=== PATIENT | female | born 1945 | race Caucasian/White ===

== ENCOUNTER 2021-11-29 19:07 | Emergency (ER) | payer MEDICARE, OTHER, SELFPAY ==
[2021-11-29] VITALS (12 sets, daily range): BP systolic 175–187; BP diastolic 84–105; PULSE 79–91; RESP 22; O2SAT 92–99; BMI 30.1
--- NOTE | 2021-11-29 19:15 | DI.RAD.S_ITS ---
PROCEDURE: XR SHOULDER LT MIN 2V INDICATIONS: fall with obvious deformity of humerus TECHNIQUE: 3 views of the shoulder were acquired. COMPARISON: None. FINDINGS: Bones: Question possible posterior shoulder dislocation. Unable to obtain a adequate scapular Y-view secondary to patient injury in symptomatology. No suspicious bony lesions. Visualized ribs appear intact. Soft tissues: No suspicious soft tissue calcifications. IMPRESSION: Question posterior shoulder dislocation. Consider CT for further evaluation. Dictated by: Eliseo Farah M.D. on 11/29/2021 at 20:20 Approved by: Eliseo Farah M.D. on 11/29/2021 at 20:21
--- NOTE | 2021-11-29 19:15 | DI.RAD.S_ITS ---
PROCEDURE: XR HUMERUS LT 2V INDICATIONS: fall with obvious deformity TECHNIQUE: 2 views of the humerus were acquired. COMPARISON: None. FINDINGS: Bones: Comminuted fracture of the distal humeral diaphysis. The remaining visualized osseous structures appear maintained. Soft tissues: No suspicious soft tissue calcifications. Edema about the fracture site. IMPRESSION: Comminuted fracture of the distal humeral diaphysis. Dictated by: Arjun Mittal M.D. on 11/29/2021 at 20:03 Approved by: Arjun Mittal M.D. on 11/29/2021 at 20:04
--- NOTE | 2021-11-29 19:15 | DI.RAD.S_ITS ---
PROCEDURE: XR ELBOW LT MIN 3V INDICATIONS: fall with obvious deformity TECHNIQUE: 3 views of the elbow were acquired. COMPARISON: None. FINDINGS: Bones: Comminuted fracture of the distal humeral diaphysis. The remaining visualized osseous structures appear maintained. Soft tissues: No elbow joint effusion. Edema about the fracture site. IMPRESSION: Comminuted fracture of the distal humeral diaphysis. Dictated by: Arjun Mittal M.D. on 11/29/2021 at 20:04 Approved by: Arjun Mittal M.D. on 11/29/2021 at 20:05
--- NOTE | 2021-11-29 19:15 | DI.CT.S_ITS ---
PROCEDURE: CT FACIAL BONES WO CON INDICATIONS: fall with facial injury TECHNIQUE: Noncontrast 2.5 mm thick axial images acquired from the mandible through the frontal sinuses, with coronal and sagittal reformatting. For radiation dose reduction, the following was used: automated exposure control, adjustment of mA and/or kV according to patient size. COMPARISON: None. FINDINGS: Image quality: Excellent. Bones and teeth: Orbital castillo are intact. Sinus castillo show no fracture or deformity. Nasal bones and septum are intact. Visualized portions of the mandible demonstrate no fractures or subluxation. Zygomatic arches are intact. Pterygoid plates are intact. Visualized portions of the skull base and auditory canals are intact. Sinuses: No air-fluid levels in the paranasal sinuses. Patchy bilateral ethmoid disease. Left maxillary sinus mucous retention cysts. Mild bilateral maxillary sinus mucosal thickening. Mastoid air cells are aerated. Soft tissues: No edema, masses, or fluid collections. No enlarged lymph nodes. No soft tissue lacerations or debris. Vascular: Visualized vascular structures appear normal in the absence of contrast. Bony vascular foramina and canals are intact. IMPRESSION: 1. No evidence of displaced facial bone fracture or mandibular fracture. 2. Chronic sinus disease. Dictated by: Eliseo Farah M.D. on 11/29/2021 at 20:55 Approved by: Eliseo Farah M.D. on 11/29/2021 at 20:56
--- NOTE | 2021-11-29 19:16 | DI.CT.S_ITS ---
PROCEDURE: CT CERVICAL SPINE WO CON INDICATIONS: Trauma TECHNIQUE: Noncontrast 3 mm thick sections acquired from the skull base to the T4 level. Sagittal and coronal reformats were then constructed. For radiation dose reduction, the following was used: automated exposure control, adjustment of mA and/or kV according to patient size. COMPARISON: None. FINDINGS: Image quality: Excellent. Bones: No fractures or dislocations. Visualized superior ribs are intact. There is moderate cervical spondylitic change. There is trace anterolisthesis of C4 on C5 and question of anterior disc space widening with an anterior disc bulge. Findings are present at a level of bilateral facet arthropathy. Trace anterolisthesis as well as anterior disc height widening are most likely chronic findings. However, consider flexion and extension cervical spine plain films. At C5-C6, there is disc height loss and uncovertebral joint hypertrophy. There is right foraminal narrowing at C4-C5 and C5-C6. There is left bony foraminal narrowing at C5-C6. There is multilevel facet arthropathy Soft tissues: Prevertebral soft tissues are normal in thickness. No paravertebral hematomas. No apical pneumothoraces. Centrilobular emphysema. IMPRESSION: 1. No evidence acute cervical fracture or dislocation. 2. Moderate cervical spondylitic change. 3. Trace anterolisthesis of C4 on C5 and anterior disc space widening within anterior disc bulge may all be chronic findings in this patient with bilateral facet arthropathy at this level. However, flexion and extension cervical spine plain films may potentially be helpful to rule out ligamentous laxity. . Dictated by: Eliseo Farah M.D. on 11/29/2021 at 20:27 Approved by: Eliseo Farah M.D. on 11/29/2021 at 20:32
--- NOTE | 2021-11-29 19:16 | DI.CT.S_ITS ---
PROCEDURE: CT HEAD/BRAIN WO CON INDICATIONS: Trauma TECHNIQUE: Noncontrast 4.5 mm thick angled axial sections acquired from the foramen magnum to the vertex, with coronal and sagittal reformats. For radiation dose reduction, the following was used: automated exposure control, adjustment of mA and/or kV according to patient size. COMPARISON: None. FINDINGS: Image quality: There is some mild patient motion artifact. CSF spaces: Basal cisterns are patent. No extra-axial fluid collections. The ventricles are symmetric in size and shape. Brain: No intracranial bleeds or masses. There is cerebral volume loss for age, with resultant ventricular and sulcal prominence. There are periventricular and deep white matter chronic small vessel ischemic changes. There is intracranial internal carotid artery atherosclerosis. Skull and face: Calvarium and visualized facial bones appear intact, without suspicious lesions. Sinuses: Patchy chronic ethmoid opacification consistent with chronic sinus disease. Left maxillary sinus mucous retention cysts. Right maxillary sinus mucosal thickening. IMPRESSION: 1. Chronic sinus disease. 2. Age-related volume loss and small vessel ischemic change. 3. No evidence acute stroke, hemorrhage, or mass. No evidence of significant intracranial abnormality secondary to acute trauma. Dictated by: Eliseo Farah M.D. on 11/29/2021 at 20:32 Approved by: Eliseo Farah M.D. on 11/29/2021 at 20:34
--- NOTE | 2021-11-29 19:18 | ED_ITS ---
HPI - Trauma General Chief Complaint: Fall Stated Complaint: trip and fall/ broken arm Time Seen by Provider: 11/29/21 19:15 History of Present Illness HPI narrative: 76F nonsmoker without significant medical history presents by EMS for evaluation of a ground level fall resulting in obvious injury. She has been in her normal state of health and denies any prodromal symptoms such as dizziness, weakness or lightheadedness. She was exiting a restaurant tripped over something on the gr ound and fell striking her face and severely injuring her left upper arm. She denies any loss of consciousness and has full recall. She denies any nausea, vomiting or diarrhea. She does not take blood thinners. She denies any blurred vision or difficulty breathing. She has been splinted has obvious deformity of left upper extremity without report of numbness, tingling or weakness. She denies any chest pain or shortness of breath. She is activated as a modified trauma given her age in suspicion of injury. Related Data Allergies Allergy/AdvReac Type Severity Reaction Status Date / Time No Known Drug Allergies Allergy Verified 11/29/21 19:17 Review of Systems Review of Systems Narrative: GENERAL: Denies chills, fatigue, malaise, fever, sweats. HEENT: Denies sinus pain, ear pain, sore throat, difficulty swallowing, dizzines s. RESPIRATORY: Denies dyspnea, cough, wheezing, hemoptysis, sputum. CARDIOVASCULAR: Denies chest pain, palpitations, orthopnea, edema, GASTROINTESTINAL: Denies nausea, vomiting, abdominal pain, diarrhea, constipation, melena. : Denies dysuria, frequency, incontinence, hematuria, urinary retention. MUSCULOSKELETAL: See HPI SKIN: Denies rash, skin lesions, or other NEUROLOGIC: See HPI PSYCHIATRIC: No concerning psychosocial issues. 12 point review of systems is negative except for those stated above Patient History Social History Smoking Status: Never smoker Exam Narrative Exam Narrative: GENERAL: [76] year old patient appears stated age. Well-developed patient, in mild distress. GCS 15 HEAD: Multiple abrasions to face overlying nose and forehead. No deep lacerations, evidence of depressed skull fracture EYES: Pupils equal round and reactive. No hyphema. Extraocular motions intact. No scleral icterus. No injection or drainage. ENT: Nose without bleeding, purulent drainage. No nasal septal hematoma. Throat without erythema, tonsillar hypertrophy or exudate. Airway patent. NECK: Trachea midline. Non tender CARDIOVASCULAR: Regular rate and rhythm without murmurs, gallops, or rubs. RESPIRATORY: Clear to auscultation. Breath sounds equal bilaterally. No wheezes, rales, or rhonchi. GASTROINTESTINAL: Abdomen soft, non-tender, nondistended. EXTREMITIES: No pain left shoulder, elbow, wrist. Severe pain w/deformity of L humerus. Episodic, positional tingling of left hand. Radial pulse palpable BACK: Nontender without deformity or crepitance. No flank tenderness. NEURO: AOx3.tingling in left hand, particularly on dorsum. Weak wrist extension SKIN: No rash or erythema of visible areas Initial Vital Signs Initial Vital Signs: Vital Signs Respiratory Rate 11/29/21 19:15 Blood Pressure 178/98 H 11/29/21 19:15 Procedures Orthopedic Splinting/Casting Injury #1: Side: left Upper Extremity Injury Location: upper arm Upper Extremity Immobilizer: sling/shoulder immobilizer and sugar tong splint (coaptic splint) Post splinting neuro exam: other (more persistent wrist drop, splint removed, patient repositioned) Post splinting vascular exam: no change Course Orders Ordered: ED Orders 11/29/21 19:15 CT facial bones wo con Stat XR elbow LT min 3V Stat XR humerus LT 2V Stat XR shoulder LT min 2V Stat 11/29/21 19:16 CT cervical spine wo con Stat CT head/brain wo con Stat EKG-12 Lead Stat 11/29/21 19:45 Complete Blood Count AUTO DIFF Stat Comprehensive Metabolic Panel Stat Ethanol (ETOH) Stat Lipase Stat Type and Screen Stat 11/29/21 21:42 COVID19 -Nasal swab/Pre-Proc Stat Discontinued Medications Diphtheria/Tetanus/Acell Pertussis (Tet,Diph,Pertuss(Acell),Vac/Pf 0.5 Ml Syr glenna) 0.5 ml IM .ONCE ONE Stop: 11/29/21 19:16 Last Admin: 11/29/21 19:44 Dose: 0.5 ml Documented by: JOSE Fentanyl (Fentanyl 100 Mcg/2 Ml Inj) 50 mcg IV NOW ONE Stop: 11/29/21 19:16 Last Admin: 11/29/21 19:45 Dose: 50 mcg Documented by: JOSE Fentanyl (Fentanyl 100 Mcg/2 Ml Inj) 50 mcg IV NOW ONE Stop: 11/29/21 21:07 Last Admin: 11/29/21 21:09 Dose: 50 mcg Documented by: JOSE Ondansetron HCl (Ondansetron 4 Mg/2 Ml Inj) 4 mg IV NOW ONE Stop: 11/29/21 19:16 Last Admin: 11/29/21 19:45 Dose: 4 mg Documented by: JOSE Ondansetron HCl (Ondansetron 4 Mg Odt Prepack) 1 bottle MISC SEEINSTR ONE Stop: 11/29/21 20:56 Last Admin: 11/30/21 00:32 Dose: Not Given Documented by: JOSE Oxycodone/Acetaminophen (Oxycodone/Apap 5/325 Prepack) 1 bottle MISC SEEINSTR ONE Stop: 11/29/21 20:56 Last Admin: 11/30/21 00:32 Dose: Not Given Documented by: JOSE Reevaluation(s) Reevaluation #1: patient has worsening and more persistent weakness in distribution of radial nerve post splinting. Compartments soft. Splint taken down, arm respositioned, she is weak with wrist extension despite repositioning at this time. Consultations Consultation #1: call to Dr. Dougherty (ortho), he has reviewed imaging. Agrees that without pain in shoulder, it is not likely dislocated. Suggests coaptation splint, sling unless radial nerve involvement in which case it would become outside our ability to treat local Consultation #2: upon new findings, call to [facility] [place], images pushed. despite multiple efforts the images have not been viewed by receiving ortho, but recommendation remains the same. Please send to [facility] [place]. ALS transport activated due to need for ongoing neuro exams and likely pain control Vital Signs Vital signs: Vital Signs - 8 hr 11/29/21 19:15 11/29/21 19:26 11/29/21 19:30 Pulse Rate 85 79 Respiratory Rate 22 Blood Pressure 178/98 H 182/105 H Pulse Oximetry 98 97 11/29/21 20:17 11/29/21 20:30 11/29/21 20:42 Pulse Rate 84 83 85 Respiratory Rate Blood Pressure 175/86 H Pulse Oximetry 97 96 95 11/29/21 21:00 11/29/21 21:30 11/29/21 22:14 Pulse Rate 86 86 81 Respiratory Rate Blood Pressure 187/84 H Pulse Oximetry 96 97 99 11/29/21 22:30 11/29/21 23:00 11/29/21 23:30 Pulse Rate 86 91 H 88 Respiratory Rate Blood Pressure Pulse Oximetry 93 92 92 11/30/21 00:22 11/30/21 00:23 11/30/21 00:30 Pulse Rate 78 78 79 Respiratory Rate Blood Pressure 170/91 H Pulse Oximetry 95 97 95 MDM - Trauma Lab Data Result diagrams: 11/29/21 19:45 11/29/21 19:45 Labs: Lab Results 11/29/21 11/29/21 11/29/21 Range/Units 19:45 19:45 19:45 WBC 10.3 (4.5-11.0) X10^3/uL RBC 4.19 (4.0-5.2) X10^6/uL Hgb 14.6 (12.0-16.0) g/dL Hct 43.1 (36-46) % MCV 103.0 H (80-100) fL MCH 34.9 H (26-34) PG MCHC 33.9 (30-36) % RDW 13.7 (11.6-14.8) % Plt Count 222 (150-400) X10^3/uL Neut % (Auto) 75.0 (50-75) % Lymph % (Auto) 14.2 L (25-40) % Liberty % (Auto) 8.0 (3-14) % Eos % (Auto) 2.4 (2-4) % Baso % (Auto) 0.4 (0-2) % Neut # (Auto) 7700 H (8777-3686) /uL Lymph # (Auto) 1500 (1512-2848) /uL Liberty # (Auto) 800 (0-900) /uL Eos # (Auto) 200 (0-450) /uL Baso # (Auto) 0 (0-100) /uL Sodium 136 L (137-145) mmol/L Potassium 3.7 (3.4-5.1) mmol/L Chloride 104 (98-107) mmol/L Carbon Dioxide 21 L (22-32) mmol/L BUN 16 (7-17) mg/dL Creatinine 0.61 (0.52-1.04) mg/dL Estimated GFR > 60.0 (>60) mL/min BUN/Creatinine Ratio 26.2 H (6-22) Glucose 135 H (80-110) mg/dL Calcium 9.7 (8.4-10.2) mg/dL Total Bilirubin 0.4 (0.2-1.3) mg/dL AST 35 (14-36) IU/L ALT 21 (<35) IU/L Alkaline Phosphatase 55 (38-126) U/L Total Protein 8.6 H (6.3-8.2) g/dL Albumin 4.8 (3.5-5.0) g/dL Globulin 3.8 (1.7-4.1) g/dL Albumin/Globulin Ratio 1.3 (1.0-2.8) Lipase 125 (23-300) U/L Ethyl Alcohol < 10 ( - 10) mg/dL SARS-CoV-2 (PCR) (Negative) Blood Type A Positive Antibody Screen Negative 11/29/21 Range/Units 21:42 WBC (4.5-11.0) X10^3/uL RBC (4.0-5.2) X10^6/uL Hgb (12.0-16.0) g/dL Hct (36-46) % MCV (80-100) fL MCH (26-34) PG MCHC (30-36) % RDW (11.6-14.8) % Plt Count (150-400) X10^3/uL Neut % (Auto) (50-75) % Lymph % (Auto) (25-40) % Liberty % (Auto) (3-14) % Eos % (Auto) (2-4) % Baso % (Auto) (0-2) % Neut # (Auto) (7638-7580) /uL Lymph # (Auto) (7813-0437) /uL Liberty # (Auto) (0-900) /uL Eos # (Auto) (0-450) /uL Baso # (Auto) (0-100) /uL Sodium (137-145) mmol/L Potassium (3.4-5.1) mmol/L Chloride (98-107) mmol/L Carbon Dioxide (22-32) mmol/L BUN (7-17) mg/dL Creatinine (0.52-1.04) mg/dL Estimated GFR (>60) mL/min BUN/Creatinine Ratio (6-22) Glucose (80-110) mg/dL Calcium (8.4-10.2) mg/dL Total Bilirubin (0.2-1.3) mg/dL AST (14-36) IU/L ALT (<35) IU/L Alkaline Phosphatase (38-126) U/L Total Protein (6.3-8.2) g/dL Albumin (3.5-5.0) g/dL Globulin (1.7-4.1) g/dL Albumin/Globulin Ratio (1.0-2.8) Lipase (23-300) U/L Ethyl Alcohol ( - 10) mg/dL SARS-CoV-2 (PCR) Negative (Negative) Blood Type Antibody Screen Imaging Data CT scan - head: Radiologist's Impression: [address] [address] [address] Scan Report Signed Patient: Yasmin Franco MR#: [id number] : 1945 Acct:[id number] Age/Sex: 76 / F Date of Service: 11/29/21 Loc: ED Accession Number: [id number] ?? Procedure: CT head/brain wo con Ordering Provider: Josh Hayward D.O. PROCEDURE:? CT HEAD/BRAIN WO CON ? INDICATIONS:? Trauma ? TECHNIQUE:? Noncontrast 4.5 mm thick angled axial sections acquired from the foramen magnum to the vertex, with coronal and sagittal reformats.? For radiation dose reduction, the following was used:? automated exposure control, adjustment of mA and/or kV according to patient size.? ? COMPARISON:? None. ? FINDINGS:? Image quality:? There is some mild patient motion artifact.? ? CSF spaces:? Basal cisterns are patent.? No extra-axial fluid collections.? The ventricles are symmetric in size and shape.? ? Brain:? No intracranial bleeds or masses.? There is cerebral volume loss for age, with resultant ventricular and sulcal prominence.? There are periventricular and deep white matter chronic small vessel ischemic changes.? There is intracranial internal carotid artery atherosclerosis.? ? Skull and face:? Calvarium and visualized facial bones appear intact, without suspicious lesions.? ? Sinuses:? Patchy chronic ethmoid opacification consistent with chronic sinus disease.? Left maxillary sinus mucous retention cysts.? Right maxillary sinus mucosal thickening. ? IMPRESSION:? ? 1. Chronic sinus disease. ? 2. Age-related volume loss and small vessel ischemic change. ? 3. No evidence acute stroke, hemorrhage, or mass.? No evidence of significant intracranial abnormality secondary to acute trauma.? ? Dictated by: Eliseo Farah M.D. on 11/29/2021 at 20:32 ? ? Approved by: Eliseo Farah M.D. on 11/29/2021 at 20:34 ? CT - cervical spine: Radiologist's Impression: Close Head CT (Signed) Eliseo Farah - 11/29/[address] (Signed) Eliseo Farah - 11/29/21 Shoulder X-Ray (Signed) Eliseo Farah - 11/29/21 Humerus X-Ray (Signed) Arjun Mittal - 11/29/[address] (Signed) Eliseo Farah - 11/29/21 Elbow X-Ray (Signed) Arjun Mittal - 11/29/21 Launch?[place] [address] CT Scan Report Signed Patient: Yasmin Franco MR#: [id number] : 1945 Acct:[id number] Age/Sex: 76 / F Date of Service: 11/29/21 Loc: ED Accession Number: [id number] ?? Procedure: CT cervical spine wo con Ordering Provider: Josh Hayward D.O. PROCEDURE:? CT CERVICAL SPINE WO CON ? INDICATIONS:? Trauma ? TECHNIQUE:? Noncontrast 3 mm thick sections acquired from the skull base to the T4 level.? Sagittal and coronal reformats were then constructed.? For radiation dose reduction, the following was used:? automated exposure control, adjustment of mA and/or kV according to patient size.? ? COMPARISON:? None. ? FINDINGS:? Image quality:? Excellent.? ? Bones:? No fractures or dislocations.? Visualized superior ribs are intact.? There is moderate cervical spondylitic change.? There is trace anterolisthesis of C4 on C5 and question of anterior disc space widening with an anterior disc bulge.? Findings are present at a level of bilateral facet arthropathy.? Trace anterolisthesis as well as anterior disc height widening are most likely chronic findings.? However, consider flexion and extension cervical spine plain films.? At C5-C6, there is disc height loss and uncovertebral joint hypertrophy.? There is right foraminal narrowing at C4- C5 and C5-C6.? There is left bony foraminal narrowing at C5-C6.? There is multilevel facet arthropathy ? Soft tissues:? Prevertebral soft tissues are normal in thickness.? No paravertebral hematomas.? No apical pneumothoraces.? Centrilobular emphysema. ? ? IMPRESSION:? ? 1. No evidence acute cervical fracture or dislocation. ? 2. Moderate cervical spondylitic change.? ? 3. Trace anterolisthesis of C4 on C5 and anterior disc space widening within anterior disc bulge may all be chronic findings in this patient with bilateral facet arthropathy at this level.? However, flexion and extension cervical spine plain films may potentially be helpful to rule out ligamentous laxity. . ? Dictated by: Eliseo Farah M.D. on 11/29/2021 at 20:27 ? ? Approved by: Eliseo Farah M.D. on 11/29/2021 at 20:32 ? facial bones: Radiologist's Impression: Launch?[place] [address] CT Scan Report Signed Patient: Yasmin Franco MR#: [id number] : 1945 Acct:[id number] Age/Sex: 76 / F Date of Service: 11/29/21 Loc: ED Accession Number: [id number] ?? Procedure: CT facial bones wo con Ordering Provider: Josh Hayward D.O. PROCEDURE:? CT FACIAL BONES WO CON ? INDICATIONS:? fall with facial injury ? TECHNIQUE:? Noncontrast 2.5 mm thick axial images acquired from the mandible through the frontal sinuses, with coronal and sagittal reformatting.? For radiation dose reduction, the following was used:? automated exposure control, adjustment of mA and/or kV according to patient size.? ? COMPARISON:? None. ? FINDINGS:? Image quality:? Excellent.? ? Bones and teeth:? Orbital castillo are intact.? Sinus castillo show no fracture or deformity.? Nasal bones and septum are intact.? Visualized portions of the mandible demonstrate no fractures or subluxation.? Zygomatic arches are intact.? Pterygoid plates are intact.? Visualized portions of the skull base and auditory canals are intact.? ? Sinuses:? No air-fluid levels in the paranasal sinuses.? Patchy bilateral ethmoid disease.? Left maxillary sinus mucous retention cysts.? Mild bilateral maxillary sinus mucosal thickening.? Mastoid air cells are aerated.? ? Soft tissues:? No edema, masses, or fluid collections.? No enlarged lymph nodes.? No soft tissue lacerations or debris.? ? Vascular:? Visualized vascular structures appear normal in the absence of contrast.? Bony vascular foramina and canals are intact.? ? IMPRESSION:? ? 1. No evidence of displaced facial bone fracture or mandibular fracture. ? 2. Chronic sinus disease.? ? ? Dictated by: Eliseo Farah M.D. on 11/29/2021 at 20:55 ? ? Approved by: Eliseo Farah M.D. on 11/29/2021 at 20:56 ? Shoulder Xray: Radiologist's Impression: [place] [address] XRay Report Signed Patient: Yasmin Franco MR#: [id number] : 1945 Acct:[id number] Age/Sex: 76 / F Date of Service: 11/29/21 Loc: ED Accession Number: [id number] ?? Procedure: XR shoulder LT min 2V Ordering Provider: Josh Hayward D.O. PROCEDURE:? XR SHOULDER LT MIN 2V ? INDICATIONS:? fall with obvious deformity of humerus ? TECHNIQUE:? 3 views of the shoulder were acquired.? ? COMPARISON:? None. ? FINDINGS:? ? Bones:? Question possible posterior shoulder dislocation.? Unable to obtain a adequate scapular Y-view secondary to patient injury in symptomatology.? No suspicious bony lesions.? Visualized ribs appear intact.? ? Soft tissues:? No suspicious soft tissue calcifications.? ? IMPRESSION:? Question posterior shoulder dislocation.? Consider CT for further evaluation. ? ? Dictated by: Eliseo Farah M.D. on 11/29/2021 at 20:20 ? ? Approved by: Eliseo Farah M.D. on 11/29/2021 at 20:21 ? Humerus Xray: Radiologist's Impression: Launch?[address] [address] XRay Report Signed Patient: Yasmin Franco MR#: [id number] : 1945 Acct:[id number] Age/Sex: 76 / F Date of Service: 11/29/21 Loc: ED Accession Number: [id number] ?? Procedure: XR humerus LT 2V Ordering Provider: Josh Hayward D.O. PROCEDURE:? XR HUMERUS LT 2V ? INDICATIONS:? fall with obvious deformity ? TECHNIQUE:? 2 views of the humerus were acquired.? ? COMPARISON:? None. ? FINDINGS:? ? Bones:? Comminuted fracture of the distal humeral diaphysis.? The remaining visualized osseous structures appear maintained.? ? Soft tissues:? No suspicious soft tissue calcifications.? Edema about the fracture site. ? IMPRESSION:? Comminuted fracture of the distal humeral diaphysis. ? ? Dictated by: Arjun Mittal M.D. on 11/29/2021 at 20:03 ? ? Approved by: Arjun Mittal M.D. on 11/29/2021 at 20:04 ? Elbow Xray: Radiologist's Impression: Launch?[address] [address] XRay Report Signed Patient: Yasmin Franco MR#: [id number] : 1945 Acct:[id number] Age/Sex: 76 / F Date of Service: 11/29/21 Loc: ED Accession Number: [id number] ?? Procedure: XR elbow LT min 3V Ordering Provider: Josh Hayward D.O. PROCEDURE:? XR ELBOW LT MIN 3V ? INDICATIONS:? fall with obvious deformity ? TECHNIQUE:? 3 views of the elbow were acquired.? ? COMPARISON:? None. ? FINDINGS:? ? Bones:? Comminuted fracture of the distal humeral diaphysis.? The remaining visualized osseous structures appear maintained.? ? Soft tissues:? No elbow joint effusion.? Edema about the fracture site.? ? ? IMPRESSION:? Comminuted fracture of the distal humeral diaphysis. ? ? Dictated by: Arjun Mittal M.D. on 11/29/2021 at 20:04 ? ? Approved by: Arjun Mittal M.D. on 11/29/2021 at 20:05 ? Critical Care Time Critical Care Time Critical Care Time: Yes Total Critical Care Time: 45 Attestation: The high probability of a clinically significant, sudden or life threatening deterioration of the [MSK/NV] system(s) required my full and direct attention, intervention and personal management. The aggregate critical care time was [45] minutes. This time is in addition to time spent performing reported procedures but includes the following: [x] Data Review and interpretation [x] Patient assessment and monitoring of vital signs [x] Documentation [x] Medication orders and management Discharge Plan Departure Patient Disposition: [facility] Clinical Impression: Fracture, humerus closed, shaft, Acute radial nerve palsy Activity Restrictions/Additional Instructions: .
[2021-11-29] MEDS: TET,DIPH,PERTUSS(ACELL),VAC/PF 0.5 ML SYRINGE IM (19:44)
[2021-11-29] MEDS: ONDANSETRON 4 MG/2 ML INJ IV (19:45)
[2021-11-29] MEDS: fentaNYL 100 MCG/2 ML INJ 50 MCG IV ×2 (19:45→21:09)
[2021-11-29 19:54] LABS: Add Manual Diff / Slide Review NO; Basophils Absolute Auto 0 /uL (0-100); Basophils Percent Auto 0.4 % (0-2); Eosinophils Absolute Auto 200 /uL (0-450); Eosinophils Percent Auto 2.4 % (2-4); Hematocrit 43.1 % (36-46); Hemoglobin 14.6 g/dL (12.0-16.0); Lymphocytes Absolute Auto 1500 /uL (1100-4500); Lymphocytes Percent Auto 14.2 % (25-40); Mean Corpuscular HGB Conc 33.9 % (30-36); Mean Corpuscular Hemoglobin 34.9 PG (26-34); Monocytes Absolute Auto 800 /uL (0-900); Neutrophils Absolute Auto 7700 /uL (1500-7000); Platelet Count 222 X10^3/uL (150-400); Red Blood Cell Count 4.19 X10^6/uL (4.0-5.2); Red Cell Distribution Width 13.7 % (11.6-14.8); White Blood Cell Count 10.3 X10^3/uL (4.5-11.0)
[2021-11-29 20:10] LABS: Alanine Aminotransferase 21 IU/L (<35); Albumin 4.8 g/dL (3.5-5.0); Albumin Globulin Ratio 1.3 (1.0-2.8); Alkaline Phosphatase 55 U/L (38-126); Aspartate Aminotransferase 35 IU/L (14-36); BUN Creatinine Ratio 26.2 (6-22); Bilirubin Total 0.4 mg/dL (0.2-1.3); Blood Urea Nitrogen 16 mg/dL (7-17); Calcium 9.7 mg/dL (8.4-10.2); Carbon Dioxide 21 mmol/L (22-32); Chloride 104 mmol/L (98-107); Estimated Glomerular Filt Rate > 60.0 mL/min (>60); Ethanol (ETOH) < 10 mg/dL; Globulin 3.8 g/dL (1.7-4.1); Glucose 135 mg/dL (80-110); HEMOLYSIS 24 (0-50); Lipase 125 U/L (23-300); Potassium 3.7 mmol/L (3.4-5.1); Sodium 136 mmol/L (137-145); Total Protein 8.6 g/dL (6.3-8.2)
[2021-11-29 22:02] LABS: COVID19 -Nasal RAPID Negative (Negative)
[2021-11-30 00:22] VITALS: PULSE 78; O2SAT 95
[2021-11-30 00:23] VITALS: BP 170/91; PULSE 78; O2SAT 97
[2021-11-30 00:30] VITALS: PULSE 79; O2SAT 95
== END 2021-11-30 01:10 | disposition short-term general hospital (02) ==
PROVIDERS: Emergency Provider Emergency Medicine
DX: S42.492A Other displaced fracture of lower end of left humerus, initial encounter for closed fracture (principal); G56.32 Lesion of radial nerve, left upper limb; S00.31XA Abrasion of nose, initial encounter; S00.81XA Abrasion of other part of head, initial encounter; Z23 Encounter for immunization; W18.09XA Striking against other object with subsequent fall, initial encounter; Y93.89 Activity, other specified; Y92.511 Restaurant or cafe as the place of occurrence of the external cause; Z20.822 Contact with and (suspected) exposure to COVID-19
CPT/HCPCS: 36415; 70450; 70486; 72125; 73030; 73060; 73080; 80053; 80320; 83690; 85025; 86850; 86900; 86901; 87635; 90471; 93005; 96374; 96375; 99284; 99291; C9803; 90715; J2405; J3010